=== PATIENT | male | born 1965 | race Caucasian/White ===

== ENCOUNTER 2023-04-03 16:19 | Outpatient (CLI) | payer OTHER, SELFPAY ==
--- NOTE | ~2023-04-03 | MR_ITS ---
EXAMINATION: MR knee LT wo con DATE: 04/03/2023 17:22 INDICATION: CHRONIC PAIN OF LEFT KNEE TECHNIQUE: Magnetic resonance imaging (MRI) of the left knee was performed without intravenous contra st. Sequences included axial PD-weighted FS FSE, coronal PD-weighted FSE and PD-weighted FS FSE, sagi ttal PD-weighted FSE, and sagittal T2-weighted FS FSE. COMPARISON: None. FINDINGS: Medial compartment: Oblique undersurface tear of the posterior horn and body of the medial meniscus, with a displaced men iscal flap in the anteromedial joint recess. Mild diffuse cartilage thinning. Lateral compartment: Meniscus intact. Mild diffuse cartilage thinning. Patellofemoral compartment: Retinacula intact. Small linear partial thickness cartilage signal abnormality along the lateral face t. Ligaments and tendons: The ACL, PCL, MCL, and LCL are intact. Remaining flexor and extensor tendons are intact. Fluid: No significant fluid collection. Osseous/other: No suspicious focal or diffuse marrow signal. IMPRESSION: Oblique undersurface tear of the posterior horn and body of the medial meniscus, with a displaced men iscal flap. Reviewed, dictated and finalized at location K. IMPRESSION: Oblique undersurface tear of the posterior horn and body of the medial meniscus , with a displaced meniscal flap.
== END 2023-04-03 16:20 | disposition home or self-care (01) ==
PROVIDERS: PCP Family Medicine; Visit Provider Orthopaedic Surgery
DX: S83.242A Other tear of medial meniscus, current injury, left knee, initial encounter (principal); X58.XXXA Exposure to other specified factors, initial encounter
CPT/HCPCS: 73721